=== PATIENT | male | born 1950 | race Caucasian/White ===

== ENCOUNTER 2019-07-29 12:39 | Inpatient (IN) | payer MEDICARE, OTHER ==
[2019-07-29] MEDS ORDERED: FLU VACC QS2019-20(6MOS UP)/PF 60 MCG/0.5 ML SYRINGE IM ONE (14:15)
[2019-07-29] MEDS ORDERED: Prevnar 13-Val Conj/PF 0.5 ML SYRINGE IM ONE (14:15)
[2019-07-29] MEDS ORDERED: cefTRIAXone\\ROCEPHIN 1 GM VIAL IVPB SCH (16:00)
[2019-07-29] MEDS ORDERED: Sodium Chloride 0.9% 100 ML ONE (16:23)
[2019-07-29] MEDS ORDERED: Sodium Chloride 0.9% 10 ML ONE (16:23)
[2019-07-29] MEDS: HYDROcodone/Acetaminophen 5/325 mg Tablet PO PRN (16:34)
[2019-07-29] MEDS: Acetaminophen 325 MG TAB PO PRN (16:34)
[2019-07-29] MEDS: cefTRIAXone\\ROCEPHIN 1 GM in Sodium Chloride 0.9% 100 ML IVPB SCH (16:34)
[2019-07-29] MEDS: Famotidine 20 MG TAB PO SCH (20:51)
[2019-07-29] MEDS ORDERED: Famotidine 20 MG TAB PO SCH (21:00)
[2019-07-30 05:47] LABS: #Basophils 0.1 thou/uL (0.0-0.2); #Eosinphils 0.2 thou/uL (0.0-0.7); #Lymphocytes 1.4 thou/uL (1.20-3.40); #Monocytes 0.7 thou/uL (0.11-0.59); #Neutrophils 4.3 thou/uL (1.40-6.50); %Basophils 1.8 % (0.0-1.0); %Eosinophils 3.4 % (0.0-10.0); %Lymphocytes 20.4 % (21.0-51.0); %Monocytes 10.2 % (0.0-10.0); %Neutrophils 64.2 % (42.0-75.0); Anisocytosis MODERATE=16-30 cells (100X) (0-5/hpf); Hemoglobin 13.8 g/dL (14.0-18.0); MDiff Complete? YES; Mean Corpuscular Hemoglobin 34.5 pg (27.0-31.0); Mean Corpuscular Volume 98.5 fL (78.0-98.0); Platelet Count 292 thou/uL (130-400); Platelet Morphology Comment Appears Adequate; RBC Distribution Width 11.8 % (11.5-14.5); Red Blood Cell (RBC) Count 4.01 mill/uL (4.70-6.10); White Blood Cell (WBC) Count 6.7 thou/uL (4.8-10.8)
[2019-07-30 05:53] LABS: ALT (SGPT) 31 U/L (8-55); AST (SGOT) 33 U/L (5-34); Albumin 3.6 g/dL (3.4-4.8); Alkaline Phosphatase 44 U/L (40-110); Anion Gap 14 mmol/L (10-20); BUN (Urea Nitrogen) 17 mg/dL (8.4-25.7); Bilirubin, Total 0.5 mg/dL (0.2-1.2); Calc. Creatinine Clearance 69 mL/min (70-130); Calcium 9.6 mg/dL (7.8-10.44); Carbon Dioxide 24 mmol/L (23-31); Chloride 101 mmol/L (98-107); Estimated GFR-MDRD 61; Globulin 3.2 g/dL (2.4-3.5); Glucose 98 mg/dL (80-115); Protein, Total 6.8 g/dL (5.8-8.1); Sodium 135 mmol/L (136-145)
[2019-07-30] MEDS: Amlodipine 5 MG TAB PO SCH (08:13)
[2019-07-30] MEDS: Famotidine 20 MG TAB PO SCH ×2 (08:13→21:07)
[2019-07-30] MEDS: Folic Acid 1 MG TAB PO SCH (08:14)
[2019-07-30] MEDS: Thiamine 100 MG TAB PO SCH (08:14)
[2019-07-30] MEDS: Acetaminophen 325 MG TAB PO PRN ×3 (08:53→19:24)
[2019-07-30] MEDS: HYDROcodone/Acetaminophen 5/325 mg Tablet PO PRN ×3 (08:53→19:24)
[2019-07-30] MEDS: cefTRIAXone\\ROCEPHIN 1 GM in Sodium Chloride 0.9% 100 ML IVPB SCH (16:17)
[2019-07-31] MEDS: Amlodipine 5 MG TAB PO SCH (08:08)
[2019-07-31] MEDS: Famotidine 20 MG TAB PO SCH ×2 (08:08→21:05)
[2019-07-31] MEDS: Folic Acid 1 MG TAB PO SCH (08:08)
[2019-07-31] MEDS: Thiamine 100 MG TAB PO SCH (08:08)
[2019-07-31] MEDS: HYDROcodone/Acetaminophen 5/325 mg Tablet PO PRN ×3 (08:13→19:01)
[2019-07-31] MEDS: Acetaminophen 325 MG TAB PO PRN ×2 (08:13→19:00)
[2019-07-31] MEDS: cefTRIAXone\\ROCEPHIN 1 GM in Sodium Chloride 0.9% 100 ML IVPB SCH (16:54)
[2019-08-01] MEDS: Amlodipine 5 MG TAB PO SCH (08:09)
[2019-08-01] MEDS: Thiamine 100 MG TAB PO SCH (08:10)
[2019-08-01] MEDS: Folic Acid 1 MG TAB PO SCH (08:10)
[2019-08-01] MEDS: Famotidine 20 MG TAB PO SCH ×2 (08:10→20:35)
[2019-08-01] MEDS: HYDROcodone/Acetaminophen 5/325 mg Tablet PO PRN ×3 (08:10→18:04)
[2019-08-01] MEDS: cefTRIAXone\\ROCEPHIN 1 GM in Sodium Chloride 0.9% 100 ML IVPB SCH (16:47)
[2019-08-02] MEDS: HYDROcodone/Acetaminophen 5/325 mg Tablet PO PRN ×3 (09:07→18:29)
[2019-08-02] MEDS: Thiamine 100 MG TAB PO SCH (09:10)
[2019-08-02] MEDS: Folic Acid 1 MG TAB PO SCH (09:10)
[2019-08-02] MEDS: Amlodipine 5 MG TAB PO SCH (09:10)
[2019-08-02] MEDS: Famotidine 20 MG TAB PO SCH ×2 (09:11→20:29)
[2019-08-02] MEDS: cefTRIAXone\\ROCEPHIN 1 GM in Sodium Chloride 0.9% 100 ML IVPB SCH (16:21)
[2019-08-03] MEDS: HYDROcodone/Acetaminophen 5/325 mg Tablet PO PRN ×3 (09:22→19:16)
[2019-08-03] MEDS: Folic Acid 1 MG TAB PO SCH (09:23)
[2019-08-03] MEDS: Amlodipine 5 MG TAB PO SCH (09:23)
[2019-08-03] MEDS: Thiamine 100 MG TAB PO SCH (09:24)
[2019-08-03] MEDS: Famotidine 20 MG TAB PO SCH ×2 (09:24→19:16)
--- NOTE | 2019-08-03 13:00 | HP ---
HISTORY OF PRESENT ILLNESS: The patient is a 69-year-old white male with a history of hypertension, who has been living in [facility] and presented from there to [facility] on July 21 with pain in his right wrist with some redness. He was subsequently found to have an abscess of his right wrist. He was seen by Orthopedics and felt to only be soft tissue. Culture did not grow anything, but the blood did grow Streptococcus mitis and it was felt that he will require long-term IV antibiotic Rocephin. He recovered very well in the acute care hospital and was transferred to [facility] to finish his full course of 3 weeks of IV Rocephin until August 14. PAST MEDICAL HISTORY: Remarkable only for hypertension, which is untreated when he presented to [facility], but has been well controlled in the hospital on amlodipine 5 mg daily. PAST SURGICAL HISTORY: He has a history of a laminectomy many years ago, history of knee surgery, ankle surgery. SOCIAL HISTORY: He lives at [facility]. He is not to be resuscitated. He is a nonsmoker. He has a previous history of drinking 5 to 6 beers daily up until admission. ALLERGIES: HE HAS NO KNOWN ALLERGIES. REVIEW OF SYSTEMS: HEENT: Denies any headaches, dizziness, change in vision or hearing, hoarseness, or dysphagia. PULMONARY: Denies cough, sputum production, pneumonia, asthma, or tuberculosis. CARDIOVASCULAR: Denies chest pain, orthopnea, paroxysmal nocturnal dyspnea, or edema. GASTROINTESTINAL: Denies nausea, vomiting, diarrhea, constipation, or abdominal pain. GENITOURINARY: Denies dysuria, hematuria, or nocturia. MUSCULOSKELETAL: Has the above-mentioned pain in the right wrist, but no other joint symptoms. PHYSICAL EXAMINATION: GENERAL: The patient is an elderly white male, in no acute distress. Oriented x3 and cooperative. VITAL SIGNS: Show temperature 97.8, pulse 69, respirations 20, O2 saturations 95% on room air, blood pressure 146/71. HEENT: Pupils are equal, round, and reactive to light and accommodation. Sclerae anicteric. Conjunctivae pale. Oral mucous membranes well hydrated. NECK: Supple. No nodes or masses. JVP is not elevated. LUNGS: Clear. CARDIAC: Showed regular rhythm. No gallops or murmurs. ABDOMEN: Soft and nontender with no masses or organomegaly. SKIN/EXTREMITIES: Display no edema, clubbing, or cyanosis. There is a bandage over the right wrist with some tenderness to flexion, extension of the wrist with no swelling, erythema, or drainage from the wound. LABORATORY DATA: On admission showed hematocrit 39, hemoglobin 13, white count 6700. Sodium 135, potassium 4.0, chloride 101, bicarb 24, BUN 17, creatinine 1.19, glucose 98, calcium 9.6, total bilirubin 0.5, AST 33, ALT 31, alkaline phosphatase 44, albumin 3.6. Sedimentation rate and CRP were only minimally elevated on admission to [facility]. ASSESSMENT: 1. Resolving Streptococcal mitis bacteremia, most likely due to abscess of the right wrist, on IV Rocephin until August 14. 2. Hypertension, well controlled on amlodipine. 3. History of EtOH abuse. No evidence of withdrawal. 4. Macrocytosis resolving with B vitamins. PLAN: Continue IV Rocephin. Continue wound care. Monitor vital signs closely. Job ID: [id number]
[2019-08-03] MEDS: cefTRIAXone\\ROCEPHIN 1 GM in Sodium Chloride 0.9% 100 ML IVPB SCH (16:44)
[2019-08-03] MEDS: Docusate 100 MG CAP PO SCH (19:16)
[2019-08-04] MEDS: Folic Acid 1 MG TAB PO SCH (08:19)
[2019-08-04] MEDS: Thiamine 100 MG TAB PO SCH (08:19)
[2019-08-04] MEDS: Docusate 100 MG CAP PO SCH ×2 (08:19→20:57)
[2019-08-04] MEDS: Famotidine 20 MG TAB PO SCH ×2 (08:20→20:57)
[2019-08-04] MEDS: Amlodipine 5 MG TAB PO SCH (08:20)
[2019-08-04] MEDS: HYDROcodone/Acetaminophen 5/325 mg Tablet PO PRN ×3 (08:25→16:58)
[2019-08-04] MEDS: cefTRIAXone\\ROCEPHIN 1 GM in Sodium Chloride 0.9% 100 ML IVPB SCH (16:18)
--- NOTE | 2019-08-04 17:56 | PRG ---
DATE OF SERVICE: 08/04/2019 SUBJECTIVE: The patient feels well except when he is doing some therapy, but is doing very well with the therapy, although there is some soreness. He has had no any fever or chills. No skin rash. No nausea or vomiting. OBJECTIVE: LUNGS: Clear. CARDIAC: Showed regular rhythm. ABDOMEN: Soft and nontender. EXTREMITIES: Right wrist is bandaged with minimal tenderness. No erythema, warmth, or drainage. VITAL SIGNS: Show temperature of 97.9, pulse 62, respirations 16, O2 saturations 97% on room air, blood pressure 136/79. ASSESSMENT: 1. Resolving Streptococcus mitis bacteremia. 2. Improving deconditioning. 3. Stable hypertension. PLAN: 1. Continue PT/OT. 2. Continue IV Rocephin. 3. Continue amlodipine and monitor blood pressure. Job ID: [id number]
--- NOTE | 2019-08-04 18:07 | PRG ---
DATE OF SERVICE: 08/03/2019 SUBJECTIVE: The patient feels well, cooperating with therapy, having some soreness in his hand, but otherwise is doing well. He is having no fever or chills. No rash. No nausea or vomiting. OBJECTIVE: VITAL SIGNS: Temperature is 97.5, pulse 68, respirations 20, O2 sats 94% on room air, and blood pressure 166/81. EXTREMITIES: Right hand shows bandage over the right wrist with no erythema, warmth, swelling, or minimal decreased range of motion. ASSESSMENT: 1. Resolving abscess of the right wrist secondary to Streptococcus mitis on Rocephin 1 g IV piggyback until August 14. 2. Hypertension, controlled to goal. PLAN: Continue PT/OT. Continue IV Rocephin. Continue to monitor for signs of side effects. Job ID: [id number]
[2019-08-05] MEDS: Amlodipine 5 MG TAB PO SCH (08:35)
[2019-08-05] MEDS: Docusate 100 MG CAP PO SCH ×2 (08:36→21:21)
[2019-08-05] MEDS: Folic Acid 1 MG TAB PO SCH (08:36)
[2019-08-05] MEDS: Famotidine 20 MG TAB PO SCH ×2 (08:36→21:21)
[2019-08-05] MEDS: Thiamine 100 MG TAB PO SCH (08:37)
[2019-08-05] MEDS: HYDROcodone/Acetaminophen 5/325 mg Tablet PO PRN ×2 (08:40→13:26)
[2019-08-05] MEDS: cefTRIAXone\\ROCEPHIN 1 GM in Sodium Chloride 0.9% 100 ML IVPB SCH (16:32)
[2019-08-06] MEDS: Famotidine 20 MG TAB PO SCH ×2 (08:15→21:12)
[2019-08-06] MEDS: Amlodipine 5 MG TAB PO SCH (08:16)
[2019-08-06] MEDS: Docusate 100 MG CAP PO SCH ×2 (08:16→21:12)
[2019-08-06] MEDS: Thiamine 100 MG TAB PO SCH (08:16)
[2019-08-06] MEDS: Folic Acid 1 MG TAB PO SCH (08:16)
[2019-08-06] MEDS: HYDROcodone/Acetaminophen 5/325 mg Tablet PO PRN ×3 (08:17→16:49)
--- NOTE | 2019-08-06 13:55 | PRG ---
DATE OF SERVICE: 08/06/2019 SUBJECTIVE: Mr. Machado is up in his bed and denies any complaints. He just finished his lunch. He is tolerating his antibiotics. No family at bedside. Discussed with nursing. OBJECTIVE: VITAL SIGNS: He is afebrile. Heart rate 65, respirations 18, oxygen saturation 95% on room air, and blood pressure 126/73. CARDIOVASCULAR: S1, S2 plus. RESPIRATORY: Normal vesicular breath sounds. ABDOMEN: Soft, nontender, bowel sounds in all quadrants. EXTREMITIES: Without cyanosis or clubbing. CENTRAL NERVOUS SYSTEM: Awake and responsive. Generalized weakness. IMPRESSION: 1. Right wrist abscess, status post treatment with IV antibiotics. He is to end this on August 14. 2. Hypertension. 3. History of back pain status post laminectomy. 4. History of alcohol abuse. 5. Macrocytosis, likely due to alcohol abuse. PLAN: 1. Continue current medications including antibiotics until August 14. 2. Heart healthy diet. 3. Continue B complex vitamin. 4. Physical Therapy. 5. Routine laboratory values. 6. Nutritional support. 7. Discussed with the patient in detail. All questions answered. Job ID: [id number]
[2019-08-06] MEDS: cefTRIAXone\\ROCEPHIN 1 GM in Sodium Chloride 0.9% 100 ML IVPB SCH (16:06)
[2019-08-07] MEDS: Amlodipine 5 MG TAB PO SCH (08:41)
[2019-08-07] MEDS: Docusate 100 MG CAP PO SCH ×2 (08:42→20:57)
[2019-08-07] MEDS: Famotidine 20 MG TAB PO SCH ×2 (08:42→20:57)
[2019-08-07] MEDS: Folic Acid 1 MG TAB PO SCH (08:42)
[2019-08-07] MEDS: HYDROcodone/Acetaminophen 5/325 mg Tablet PO PRN ×3 (08:43→17:46)
[2019-08-07] MEDS: Thiamine 100 MG TAB PO SCH (08:43)
[2019-08-07 14:10] VITALS: BMI 25.9
[2019-08-07] MEDS: cefTRIAXone\\ROCEPHIN 1 GM in Sodium Chloride 0.9% 100 ML IVPB SCH (17:11)
[2019-08-08] MEDS: Amlodipine 5 MG TAB PO SCH (08:15)
[2019-08-08] MEDS: Famotidine 20 MG TAB PO SCH ×2 (08:15→21:00)
[2019-08-08] MEDS: Folic Acid 1 MG TAB PO SCH (08:16)
[2019-08-08] MEDS: Docusate 100 MG CAP PO SCH ×2 (08:16→21:00)
[2019-08-08] MEDS: HYDROcodone/Acetaminophen 5/325 mg Tablet PO PRN ×2 (08:18→13:24)
[2019-08-08] MEDS: Thiamine 100 MG TAB PO SCH (08:30)
[2019-08-08] MEDS: cefTRIAXone\\ROCEPHIN 1 GM in Sodium Chloride 0.9% 100 ML IVPB SCH (16:17)
[2019-08-09] MEDS: Thiamine 100 MG TAB PO SCH (08:19)
[2019-08-09] MEDS: Famotidine 20 MG TAB PO SCH ×2 (08:19→21:39)
[2019-08-09] MEDS: Folic Acid 1 MG TAB PO SCH (08:19)
[2019-08-09] MEDS: Docusate 100 MG CAP PO SCH ×2 (08:19→21:39)
[2019-08-09] MEDS: HYDROcodone/Acetaminophen 5/325 mg Tablet PO PRN ×2 (08:19→16:09)
[2019-08-09] MEDS: Amlodipine 5 MG TAB PO SCH (08:19)
[2019-08-09] MEDS: cefTRIAXone\\ROCEPHIN 1 GM in Sodium Chloride 0.9% 100 ML IVPB SCH (18:07)
[2019-08-10] MEDS: Docusate 100 MG CAP PO SCH ×2 (09:07→20:44)
[2019-08-10] MEDS: Famotidine 20 MG TAB PO SCH ×2 (09:07→20:43)
[2019-08-10] MEDS: Thiamine 100 MG TAB PO SCH (09:07)
[2019-08-10] MEDS: Folic Acid 1 MG TAB PO SCH (09:07)
[2019-08-10] MEDS: Amlodipine 5 MG TAB PO SCH (09:07)
[2019-08-10] MEDS: HYDROcodone/Acetaminophen 5/325 mg Tablet PO PRN ×2 (09:11→17:06)
[2019-08-10] MEDS: cefTRIAXone\\ROCEPHIN 1 GM in Sodium Chloride 0.9% 100 ML IVPB SCH (17:07)
--- NOTE | 2019-08-10 18:08 | PRG ---
DATE OF SERVICE: 08/08/2019 SUBJECTIVE: The patient feels well, moving around with no complaints, eating well, pleased with his progress. OBJECTIVE: VITAL SIGNS: Show temperature 97.3, pulse 74, respirations 18, O2 sats 94% on room air, and blood pressure 161/78. LUNGS: Clear. CARDIAC: Showed regular rhythm. ABDOMEN: Soft and nontender. SKIN AND EXTREMITIES: Show bandage over the right dorsal wrist. No drainage or erythema. Minimal tenderness. ASSESSMENT: 1. Resolving abscess, right wrist secondary to Streptococcus mitis, on Rocephin until August 14. 2. Hypertension, controlled to goal. PLAN: 1. Continue wound care. 2. Continue IV Rocephin. 3. Continue blood pressure control. Job ID: [id number]
--- NOTE | 2019-08-10 18:08 | PRG ---
DATE OF SERVICE: 08/05/2019 SUBJECTIVE: The patient feels well with decreasing pain in his hand. No complaints of fever, chills, nausea, or vomiting. OBJECTIVE: VITAL SIGNS: Temperature 98, pulse 78, respirations 18, O2 saturations 96% on room air, and blood pressure 143/79. LUNGS: Clear. CARDIAC: Showed regular rhythm. ABDOMEN: Soft, nontender. EXTREMITIES: Right wrist shows bandage over the right dorsal wrist with minimal tenderness. No erythema or warmth. ASSESSMENT: Resolving abscess of the right wrist, on IV Rocephin until August 14. PLAN: 1. Continue wound care. 2. Continue IV Rocephin. 3. Continue blood pressure control. Job ID: [id number]
--- NOTE | 2019-08-10 18:41 | PRG ---
DATE OF SERVICE: 08/09/2019 SUBJECTIVE: The patient feels well. No complaints. He is asking when he will be discharged next week. OBJECTIVE: LUNGS: Clear. CARDIAC: Shows regular rhythm. ABDOMEN: Soft, nontender. SKIN/EXTREMITIES: Display right wrist with a small bandage over the right dorsal wrist. No tenderness, erythema, or drainage. VITAL SIGNS: Temperature is 96.9, pulse 69, respirations 20, O2 saturations 94% on room air, blood pressure 136/77. ASSESSMENT: 1. Resolving abscess of hand infection, on IV Rocephin. 2. Controlled hypertension. 3. Resolved deconditioning. PLAN: 1. Continue wound care. 2. Continue IV Rocephin. 3. Continue amlodipine and monitor blood pressure closely. Job ID: [id number]
[2019-08-11 05:11] LABS: #Basophils 0.1 thou/uL (0.0-0.2); #Eosinphils 0.4 thou/uL (0.0-0.7); #Lymphocytes 2.1 thou/uL (1.20-3.40); #Monocytes 0.6 thou/uL (0.11-0.59); #Neutrophils 3.1 thou/uL (1.40-6.50); %Eosinophils 5.7 % (0.0-10.0); %Lymphocytes 32.8 % (21.0-51.0); %Monocytes 9.4 % (0.0-10.0); %Neutrophils 50.1 % (42.0-75.0); Hemoglobin 13.9 g/dL (14.0-18.0); Mean Corpuscular HGB CONC 33.9 g/dL (32.0-36.0); Mean Corpuscular Hemoglobin 33.5 pg (27.0-31.0); Mean Corpuscular Volume 98.8 fL (78.0-98.0); Mean Platelet Volume 7.5 fL (7.4-10.4); Platelet Count 248 thou/uL (130-400); RBC Distribution Width 11.7 % (11.5-14.5); Red Blood Cell (RBC) Count 4.14 mill/uL (4.70-6.10); White Blood Cell (WBC) Count 6.3 thou/uL (4.8-10.8)
[2019-08-11 05:27] LABS: ALT (SGPT) 59 U/L (8-55); AST (SGOT) 62 U/L (5-34); Albumin 3.7 g/dL (3.4-4.8); Alkaline Phosphatase 52 U/L (40-110); Anion Gap 13 mmol/L (10-20); BUN (Urea Nitrogen) 12 mg/dL (8.4-25.7); Bilirubin, Total 0.7 mg/dL (0.2-1.2); Calc. Creatinine Clearance 73 mL/min (70-130); Calcium 9.2 mg/dL (7.8-10.44); Carbon Dioxide 26 mmol/L (23-31); Chloride 102 mmol/L (98-107); Estimated GFR-MDRD 66; Globulin 3.2 g/dL (2.4-3.5); Glucose 100 mg/dL (80-115); Potassium 4.3 mmol/L (3.5-5.1); Protein, Total 6.9 g/dL (5.8-8.1); Sodium 137 mmol/L (136-145)
[2019-08-11] MEDS: HYDROcodone/Acetaminophen 5/325 mg Tablet PO PRN ×2 (08:54→15:24)
[2019-08-11] MEDS: Amlodipine 5 MG TAB PO SCH (08:55)
[2019-08-11] MEDS: Docusate 100 MG CAP PO SCH ×2 (08:55→20:32)
[2019-08-11] MEDS: Thiamine 100 MG TAB PO SCH (08:55)
[2019-08-11] MEDS: Famotidine 20 MG TAB PO SCH ×2 (08:55→20:32)
[2019-08-11] MEDS: Folic Acid 1 MG TAB PO SCH (08:55)
[2019-08-11] MEDS: cefTRIAXone\\ROCEPHIN 1 GM in Sodium Chloride 0.9% 100 ML IVPB SCH (17:30)
--- NOTE | 2019-08-11 17:58 | PRG ---
DATE OF SERVICE: 08/10/2019 SUBJECTIVE: The patient feels well. No pain at rest or on a strong handshake. No fever or chills. OBJECTIVE: EXTREMITIES: Show right hand bandage with no drainage or erythema. LUNGS: Clear. CARDIAC: Showed regular rhythm. ABDOMEN: Soft, nontender. VITAL SIGNS: Blood pressure is 135/85, temperature 96, pulse 59, respirations 16, and O2 sats 95% on room air. ASSESSMENT: 1. Resolving abscess to the right hand. 2. Resolved deconditioning. PLAN: 1. Continue wound care. 2. Continue IV Rocephin. 3. Continue to monitor vital signs closely. Job ID: [id number]
--- NOTE | 2019-08-11 18:15 | PRG ---
DATE OF SERVICE: 08/11/2019 SUBJECTIVE: The patient feels well. No complaints of pain, shortness of breath, headaches, or dizziness. Tolerating antibiotics well. OBJECTIVE: EXTREMITIES: Shows right hand so small bandage over the right dorsal wrist with no erythema or tenderness. No drainage. LUNGS: Clear. CARDIAC: Showed regular rhythm. ABDOMEN: Soft and nontender. LABORATORY DATA: Laboratory showed a white count 6300, hematocrit 41, and hemoglobin 13. Sodium 137, potassium 4.3, chloride 102, bicarb 26, BUN 12, creatinine 1.1, AST 62, ALT 59, and albumin up to 3.7. ASSESSMENT: 1. Resolving abscess of the right hand. 2. Stable hypertension. PLAN: 1. Continue IV Rocephin until August 14. 2. Continue wound care. Job ID: [id number]
[2019-08-12] MEDS: Folic Acid 1 MG TAB PO SCH (08:32)
[2019-08-12] MEDS: Amlodipine 5 MG TAB PO SCH (08:32)
[2019-08-12] MEDS: HYDROcodone/Acetaminophen 5/325 mg Tablet PO PRN ×2 (08:35→13:57)
[2019-08-12] MEDS: Thiamine 100 MG TAB PO SCH (08:37)
[2019-08-12] MEDS: Famotidine 20 MG TAB PO SCH ×2 (08:37→20:16)
[2019-08-12] MEDS: Docusate 100 MG CAP PO SCH ×2 (08:37→20:16)
--- NOTE | 2019-08-12 17:28 | PRG ---
DATE OF SERVICE: 08/12/2019 SUBJECTIVE: The patient feels well with no complaints, sitting up in the room, wishing for warm weather as he cannot get outside. He has no pain in his hand. OBJECTIVE: VITAL SIGNS: Temperature is 98, pulse 71, respirations 20, O2 sats 97% on room air, and blood pressure 168/95. LUNGS: Clear. CARDIAC: Showed regular rhythm. EXTREMITIES: Right hand shows healing wound over the dorsum. ASSESSMENT: 1. Resolving abscess of right hand on IV Rocephin until August 14. 2. Stable hypertension. PLAN: Continue wound care. Continue IV Rocephin until August 14. Job ID: [id number]
[2019-08-12] MEDS: cefTRIAXone\\ROCEPHIN 1 GM in Sodium Chloride 0.9% 100 ML IVPB SCH (18:07)
[2019-08-13] MEDS: Famotidine 20 MG TAB PO SCH ×2 (08:13→21:19)
[2019-08-13] MEDS: Docusate 100 MG CAP PO SCH ×2 (08:13→21:19)
[2019-08-13] MEDS: Amlodipine 5 MG TAB PO SCH (08:14)
[2019-08-13] MEDS: Folic Acid 1 MG TAB PO SCH (08:14)
[2019-08-13] MEDS: Thiamine 100 MG TAB PO SCH (08:14)
[2019-08-13] MEDS: HYDROcodone/Acetaminophen 5/325 mg Tablet PO PRN ×2 (08:15→14:45)
[2019-08-13] MEDS: cefTRIAXone\\ROCEPHIN 1 GM in Sodium Chloride 0.9% 100 ML IVPB SCH (18:40)
--- NOTE | 2019-08-13 21:28 | PRG ---
DATE OF SERVICE: 08/13/2019 SUBJECTIVE: The patient feels well, sitting up in the bed, awaiting discharge after he finishes antibiotics tomorrow night. OBJECTIVE: VITAL SIGNS: Temperature is 98, pulse 79, respirations 20, O2 saturations 96% on room air, blood pressure 142/74. ASSESSMENT: 1. Resolving infection of the right wrist. 2. Stable, resolved deconditioning. PLAN: Finish Rocephin tomorrow night. Plan discharge August 15. Job ID: [id number]
[2019-08-14] MEDS: HYDROcodone/Acetaminophen 5/325 mg Tablet PO PRN ×3 (08:43→18:02)
[2019-08-14] MEDS: Folic Acid 1 MG TAB PO SCH (08:45)
[2019-08-14] MEDS: Docusate 100 MG CAP PO SCH ×2 (08:45→20:37)
[2019-08-14] MEDS: Thiamine 100 MG TAB PO SCH (08:45)
[2019-08-14] MEDS: Famotidine 20 MG TAB PO SCH ×2 (08:45→20:37)
[2019-08-14] MEDS: Amlodipine 5 MG TAB PO SCH (08:46)
[2019-08-14] MEDS: cefTRIAXone\\ROCEPHIN 1 GM in Sodium Chloride 0.9% 100 ML IVPB SCH (17:07)
[2019-08-15 07:48] VITALS: BP 156/84; TEMP 96.4
--- NOTE | 2019-08-15 08:18 | PRG ---
DATE OF SERVICE: 08/14/2019 SUBJECTIVE: The patient feels well. No complaints. We will finish antibiotics tonight and will be discharged tomorrow to follow up with PCP. He is walking in the la, eating well, having no symptoms. OBJECTIVE: VITAL SIGNS: Temperature is 98, pulse 66, respirations 20, O2 saturation 96% on room air, blood pressure 155/33. EXTREMITIES: Right hand shows a healing abscess in the dorsum of the right wrist with no tenderness, erythema, warmth, or drainage. LUNGS: Clear. CARDIAC: Regular rate and rhythm. ABDOMEN: Soft, nontender. ASSESSMENT: Resolving abscess of the right wrist, stable hypertension. PLAN: Finish Rocephin today, discharge tomorrow. Job ID: [id number]
[2019-08-15] MEDS: Thiamine 100 MG TAB PO SCH (08:32)
[2019-08-15] MEDS: Folic Acid 1 MG TAB PO SCH (08:32)
[2019-08-15] MEDS: Docusate 100 MG CAP PO SCH (08:33)
[2019-08-15] MEDS: Amlodipine 5 MG TAB PO SCH (08:33)
[2019-08-15] MEDS: Famotidine 20 MG TAB PO SCH (08:33)
[2019-08-15] MEDS: HYDROcodone/Acetaminophen 5/325 mg Tablet PO PRN ×2 (08:39→13:08)
== END 2019-08-15 15:20 | DRG 603 ==
LOC: NAV ACUTE 12:39
PROVIDERS: ADMIT Internal Medicine; ATTEND Internal Medicine
DX: L02.413 Cutaneous abscess of right upper limb (principal); R78.81 Bacteremia; I10 Essential (primary) hypertension; D75.89 Other specified diseases of blood and blood-forming organs; R53.81 Other malaise; B95.4 Other streptococcus as the cause of diseases classified elsewhere; Z98.890 Other specified postprocedural states
CPT/HCPCS: 36415; 80053; 85025; 87070; 87205; 90471; 90686; G0008; J0696; J3490

== ENCOUNTER 2021-06-13 09:54 | Emergency (ER) | payer MEDICARE, MEDICAID | END 2021-06-13 11:08 | disposition home or self-care (01) | LOC: NAV ERS 09:54 | DX: S46.911A Strain of unspecified muscle, fascia and tendon at shoulder and upper arm level, right arm, initial encounter (principal); E78.5 Hyperlipidemia, unspecified; I10 Essential (primary) hypertension; X58.XXXA Exposure to other specified factors, initial encounter ==

== ENCOUNTER 2021-08-09 12:06 | Emergency (ER) | payer MEDICARE, MEDICAID ==
[2021-08-09 13:14] LABS: #Basophils 0.1 thou/uL (0.0-0.2); #Lymphocytes 0.8 thou/uL (1.20-3.40); #Monocytes 0.6 thou/uL (0.11-0.59); #Neutrophils 10.5 thou/uL (1.40-6.50); %Basophils 0.5 % (0.0-1.0); %Lymphocytes 6.4 % (21.0-51.0); %Monocytes 4.8 % (0.0-10.0); %Neutrophils 88.3 % (42.0-75.0); Hemoglobin 15.7 g/dL (14.0-18.0); Mean Corpuscular HGB CONC 33.1 g/dL (32.0-36.0); Mean Corpuscular Hemoglobin 35.3 pg (27.0-31.0); Mean Platelet Volume 7.3 fL (7.4-10.4); Platelet Count 260 thou/uL (130-400); RBC Distribution Width 11.4 % (11.5-14.5); Red Blood Cell (RBC) Count 4.43 mill/uL (4.70-6.10); White Blood Cell (WBC) Count 11.9 thou/uL (4.8-10.8)
[2021-08-09 13:33] LABS: ALT (SGPT) 59 U/L (8-55); AST (SGOT) 90 U/L (5-34); Albumin 4.2 g/dL (3.4-4.8); Alkaline Phosphatase 58 U/L (40-110); Anion Gap 21 mmol/L (10-20); BUN (Urea Nitrogen) 18 mg/dL (8.4-25.7); Bilirubin, Total 1.8 mg/dL (0.2-1.2); CK (CPK) 2807 U/L (30-200); Calc. Creatinine Clearance 0 mL/min (70-130); Calcium 9.3 mg/dL (7.8-10.44); Carbon Dioxide 23 mmol/L (23-31); Chloride 93 mmol/L (98-107); Globulin 3.6 g/dL (2.4-3.5); Glucose 131 mg/dL (83-110); Lipase 937 U/L (8-78); Potassium 4.1 mmol/L (3.5-5.1); Protein, Total 7.8 g/dL (5.8-8.1); Sodium 133 mmol/L (136-145)
[2021-08-09] MEDS ORDERED: Ondansetron PF 4 MG/2 ML Vial ONE (13:34)
[2021-08-09] MEDS ORDERED: Morphine 4 MG/ML VIAL ONE (13:34)
[2021-08-09] MEDS ORDERED: Sodium Chloride 0.9% 1,000 ML ONE (13:34)
[2021-08-09 13:40] LABS: Bilirubin Moderate (Negative); Blood, Urine Large (Negative); Glucose, Urine (Dipstick) Negative (Negative); Ketone, Urine 80 mg/dL (Negative); Leukocyte Negative (Negative); Nitrite Negative (Negative); Protein, Urine (Dipstick) > or equal to 300 mg/dL (Neg-Trace)
[2021-08-09 13:43] LABS: Clarity SL HAZY (Clear)
[2021-08-09 13:49] LABS: RBC/HPF 0-3 HPF (0-3); Squamous Epithelial 0-3 HPF (0-3); WBC/HPF 0-3 HPF (0-3)
[2021-08-09 15:24] LABS: SARS-CoV-2 NAA Rapid Test Not Detected (NotDetected)
== END 2021-08-09 15:15 ==
LOC: NAV ERS 12:06
DX: K85.90 Acute pancreatitis without necrosis or infection, unspecified (principal); E78.5 Hyperlipidemia, unspecified; E78.00 Pure hypercholesterolemia, unspecified; I10 Essential (primary) hypertension; Z20.822 Contact with and (suspected) exposure to COVID-19
CPT/HCPCS: 71045; 80053; 81003; 81015; 82550; 83605; 83690; 84484; 85025; 93005; 96374; 96375; J2270; J2405; J7050; U0002